=== PATIENT | male | born 1970 | race African-American/Black ===

== ENCOUNTER 2020-10-29 14:03 | Emergency (ER) | payer BC ==
[~2020-10-29] VITALS: Ht 172.7 cm; Wt 77.1 kg
[2020-10-29 14:07] VITALS: BP 154/88
--- NOTE | 2020-10-29 14:11 | NUR ---
50 YEAR OLD MALE COMPLAINS OF LOWER BACK PAIN X 1 WEEK. CONTINUOUS PAIN 8/10, LOCAL, DULL. PATIENT STATED SENSATION OF URINATION FREQUENCY WITH RESISTANCE WHEN FORCE IS APPLIED. PATIENT STATED FEELING IF HE IS "NOT ABLE TO EMPTY BLADDER". AO4, BREATHING EVEN AND UNLABORED, SKIN WARM AND DRY. BED IN LOWEST POSITION, LOCKED, X1 SIDERAIL UP. PMH - KIDNEY STONES NKA
[2020-10-29] MEDS ORDERED: KETOROLAC 30 MG/ML VIAL IM ONE (14:50)
[2020-10-29 15:08] LABS: BASOPHILS % (AUTO) 0.5 % (0.0-2.0); EOSINOPHILS # (AUTO) 0.1 K/uL (0-0.4); EOSINOPHILS % (AUTO) 1.2 % (0.0-4.0); HEMATOCRIT 40.4 % (36-52); HEMOGLOBIN 13.7 g/dL (12.0-18.0); LYMPHOCYTES # (AUTO) 2.4 K/uL (2.0-11.5); MEAN CORPUSCULAR HEMOGLOBIN 30 pg (27-31); MEAN CORPUSCULAR HGB CONC 34 g/dL (33-37); MEAN CORPUSCULAR VOLUME 89.7 fL (80-94); MONOCYTES # (AUTO) 0.4 K/uL (0.8-1.0); MONOCYTES % (AUTO) 5.6 % (1.7-9.3); NEUTROPHILS # (AUTO) 4.8 K/uL (1.8-7.7); NEUTROPHILS % (AUTO) 61.7 % (42.2-75.2); PLATELET COUNT (AUTO) 319 K/uL (140-450); RED CELL DISTRIBUTION WIDTH 13.5 % (11.6-13.7); WHITE BLOOD COUNT (AUTO) 7.8 K/uL (4.8-10.8)
[2020-10-29 15:23] LABS: ALBUMIN 3.6 g/dL (3.4-5.0); CARBON DIOXIDE 26.9 mmol/L (21-32); CREATININE 1.1 mg/dL (0.6-1.3); POTASSIUM 3.9 mmol/L (3.5-5.1); TOTAL BILIRUBIN 0.9 mg/dL (0.0-1.0)
--- NOTE | 2020-10-29 15:26 | NUR ---
PT IN BED, CALM, EYES OPEN. BREATHING EVEN AND UNLABORED. WILL CONTINUE TO MONITOR.
[2020-10-29 15:35] LABS: APPEARANCE,URINE CLOUDY (CLEAR); BILIRUBIN,URINE NEGATIVE (NEGATIVE); BLOOD, URINE 2+ (NEGATIVE); COLOR,URINE YELLOW (YELLOW); LEUKOCYTE ESTERASE ,URINE 1+ (NEGATIVE); NITRITE, URINE NEGATIVE (NEGATIVE); UGLUCOSE 3+ (NEGATIVE)
[2020-10-29 16:02] LABS: RBC,URINE 11-20 (MOD) /HPF (0-5); WBC,URINE 20-60 /HPF (0-5)
[2020-10-29 17:12] VITALS: BP 152/89
--- NOTE | 2020-10-29 17:14 | NUR ---
Patient discharged with v/s stable. Written and verbal after care instructions ABOUT UTI given and explained. Patient alert, oriented and verbalized understanding of instructions. Ambulatory with steady gait. All questions addressed prior to discharge. ID band removed. Patient advised to follow up with PMD. Rx of CIPROFLOXACIN given. Patient educated on indication of medication including possible reaction and side effects. Opportunity to ask questions provided and answered.
== END 2020-10-29 17:14 | disposition home or self-care (01) ==
LOC: MED 14:03
DX: N39.0 Urinary tract infection, site not specified (principal); E11.9 Type 2 diabetes mellitus without complications; Z87.442 Personal history of urinary calculi
CPT/HCPCS: 36415; 74176; 80053; 81001; 85025; 87086; 96372; 99284; J1885

== ENCOUNTER 2022-03-10 23:38 | Emergency (ER) | payer BC ==
[~2022-03-10] VITALS: Ht 172.7 cm; Wt 84.9 kg
[2022-03-11 00:02] VITALS: BP 179/89
--- NOTE | 2022-03-11 00:05 | NUR ---
PT TAKEN TO BED 7.
--- NOTE | 2022-03-11 00:15 | NUR ---
BP REASSESSED 142/71
--- NOTE | 2022-03-11 00:18 | NUR ---
MD MANE AT BEDSIDE
--- NOTE | 2022-03-11 00:22 | NUR ---
51/M BIB SELF C/C RIGHT ARMPIT ABSCESS. PATIETN STATED THAT TODAY HE NOTICED IT STARTED DRAINING WITH SOME BROWN DISCHARGE. PAIN IS 8/10 AND FEELS LIKE BURNING. PATIETN STATED THAT HES HAD IT FOR 4-5 MONTHS AND NEVER NOTICED ANY DRAINAGE OR PAIN TILL TODAY. PATIETN IS AAOX4. AMBULATORY. RR EVEN AND UNLABORED. PATIETN PLACED IN GOWN. BED LOW AND LOCKED. SIDE RAIL UP FOR SAFETY. ALL NEEDS MET. DENIES PMHX, RX NKA
[2022-03-11] MEDS ORDERED: IBUP-2218 PO (00:32)
[2022-03-11] MEDS ORDERED: SULF-59 PO (00:32)
[2022-03-11] MEDS ORDERED: SULFAMETH/TRIMETH DS 800/160MG 1 TAB PO ONE (00:35)
[2022-03-11] MEDS ORDERED: IBUPROFEN 800 MG TAB PO ONE (00:35)
--- NOTE | 2022-03-11 01:05 | NUR ---
PATIETN SITTING IN BED. BED LOW AND LOCKED. TOLERATED MEDICATION WELL. ALL NEEDS MET
[2022-03-11 01:18] VITALS: BP 138/84
--- NOTE | 2022-03-11 01:18 | NUR ---
Patient discharged with v/s stable. Written and verbal after care instructions given ON [employer] and explained. Patient alert, oriented and verbalized understanding of instructions. Ambulatory with steady gait. All questions addressed prior to discharge. ID band removed. Patient advised to follow up with PMD. Rx of IBUPROFEN AND SULFAMETHOXAZOLE given.
--- NOTE | 2022-03-11 01:24 | NUR ---
The patient's care was reviewed and supervised by Tanisha Ware RN.
== END 2022-03-11 01:18 | disposition home or self-care (01) ==
LOC: MED 23:38
DX: L02.411 Cutaneous abscess of right axilla (principal); L91.0 Hypertrophic scar; Z79.899 Other long term (current) drug therapy
CPT/HCPCS: 99283